=== PATIENT | male | born 1960 | race Caucasian/White ===

== ENCOUNTER → 2019-02-06 12:31 | Outpatient (CLI) | payer OTHER, SELFPAY ==
--- NOTE | 2019-02-06 13:11 | DI.CT.S_ITS ---
PROCEDURE: CT ABDOMEN PELVIS W CON INDICATIONS: Right upper quadrant pain TECHNIQUE: After the administration of oral and intravenous contrast, 5 mm thick sections acquired from the diaphragms to the symphysis. 5 mm thick coronal and sagittal reformats were performed. For radiation dose reduction, the following was used: automated exposure control, adjustment of mA and/or kV according to patient size. COMPARISON: [facility], CT, ABDOMEN/PELVIS WITH CONTRAST, 02/19/2015, 7:46. FINDINGS: Image quality: Excellent. ABDOMEN: Lung bases: Lung bases are clear. Heart size is normal. Solid organs: There is a calcified granuloma in liver. Liver is normal in size and enhancement. Gallbladder is normal. Biliary system is non-dilated. Pancreas enhances normally. Spleen is normal in size and enhancement. No adrenal nodules. Kidneys are normal in size and enhancement, without hydronephrosis. Peritoneum and bowel: Stomach, small bowel, and colon loops are normal in caliber and wall thickness. There are scattered colonic diverticula. There is mild thickening of sigmoid colon without associated inflammatory stranding. Appendix is normal. No free fluid or air. Nodes and vessels: No retroperitoneal or mesenteric adenopathy. Aorta and inferior vena cava are normal in caliber. Miscellaneous: No ventral hernias. PELVIS: Genitourinary: Bladder wall may be mildly thickened anteriorly. Miscellaneous: No inguinal adenopathy. Bilateral fat containing internal hernias are noted. Bones: No suspicious bony lesions. No vertebral body compression fractures. IMPRESSION: 1. No CT findings to explain right upper quadrant pain. 2. Colonic diverticulosis. There is mild thickening of sigmoid colon without associated inflammatory stranding. Differential diagnosis include artifact versus mild acute diverticulitis. 3. ? Mild bladder wall thickening, which may be secondary to artifact, cystitis or bladder outlet obstruction. 4. A calcified granuloma in the liver. Dictated by: Sallie Tran M.D. on 02/06/2019 at 16:02 Approved by: Sallie Tran M.D. on 02/06/2019 at 18:19
== END ==
PROVIDERS: PCP Internal Medicine; Visit Provider Internal Medicine
DX: R10.11 Right upper quadrant pain (principal); K57.90 Diverticulosis of intestine, part unspecified, without perforation or abscess without bleeding; K40.20 Bilateral inguinal hernia, without obstruction or gangrene, not specified as recurrent
CPT/HCPCS: 74177; Q9967

== ENCOUNTER 2019-08-29 10:24 | Day surgery (SDC) | payer OTHER, SELFPAY ==
[2019-08-29] VITALS (7 sets, daily range): BP systolic 110–137; BP diastolic 65–88; PULSE 71–99; RESP 15–20; TEMP 36.2–36.8; O2SAT 95–99; BMI 30.9
--- NOTE | 2019-08-29 | PATH_ITS ---
[facility] Accession Number: [id number] . 01 Material submitted: . PART A: colon - TRANSVERSE COLON POLYPS X2 PART B: colon - DESCENDING COLON POLYP . 02 Diagnosis: A. Transverse Colon, Polyps x2, Biopsies: Tubular adenoma in one of two fragments. Benign lymphoid aggregate in one fragment. . B. Descending Colon, Polyp, Biopsy: Tubular adenoma. MRV 08/30/2019 1337 Local . 02 Electronically signed: . Yola Butler MD, Pathologist NPI- [id number] . 01 Gross description: . Part A: TRANSVERSE COLON POLYPS X2: Received in formalin are 2 fragment(s) of miller, soft tissue measuring 0.2 x 0.2 x 0.2 cm to 0.6 x 0.5 x 0.3 cm submitted entirely in 1 cassette(s) Part B: DESCENDING COLON POLYP: Received in formalin is 1 fragment(s) of miller, soft tissue measuring 0.3 x 0.3 x 0.3 cm submitted entirely in 1 cassette(s) /[facility] 08/29/2019 2030 Local . 02 Pathologist provided ICD-10: D12.3, D12.4 . 02 CPT . 992542, [id number] Performed at: 01 [facility] [address], [place], [place] [id number] MD Pepe Qiu MD Phone: [phone] Performed at: 02 [facility] [address] [place], [place] [id number] MD Yola Butler MD Phone: [phone]
--- NOTE | 2019-08-29 07:59 | PM.HP.1 ---
History of Present Illness History of Present Illness Date Patient Seen: 08/29/19 Chief complaint: [id number] Narrative: 59-year-old male with a history of diverticulitis in January 2019 who is here for colon cancer screening. He had prior colonoscopy performed at age 43 with a polyp and in 2010 which was normal per his but records are not available for review. He currently denies any ongoing abdominal pain. Patient seen in our office on 08/21/2019. Please refer to that office note for further details. Meds Home Medications and Allergies Home Medications Medication Instructions Recorded Confirmed Type No Known Home Medications 08/29/19 08/29/19 History Allergies Allergy/AdvReac Type Severity Reaction Status Date / Time yellow fever vaccine live Allergy Mild MADE ME Verified 08/29/19 10:44 [YELLOW FEVER VACCINE LIVE] REALLY SICK Exam Narrative Exam Narrative: General: Patient is obese, not in apparent distress Cardiovascular: Regular rate and rhythm, no murmurs, rubs, or gallops; no evidence of edema; no palpable abdominal aortic aneurysm Gastrointestinal: Normoactive bowel sounds, soft, nontender, nondistended, no rebound tenderness, no hepatosplenomegaly, no evidence of hernia Assessment & Plan Assessment & Plan narrative: 59-year-old male here for colon cancer screening after having a bout of diverticulitis January 2019. Regarding the procedure(s), the risks and potential complications, benefits, and alternatives (including not doing the procedure) were discussed with the patient. The risks include but are not limited to bleeding, splenic injury, infection, perforation which may require surgical intervention, missed lesions, and adverse reactions to sedative medicines. After a question and answer period, the patient agreed to proceed with the procedure(s) and gives informed consent.
[2019-08-29] MEDS: SODIUM CHLORIDE 0.9% 1,000 ML 70 ML IV (10:44)
--- NOTE | 2019-08-29 11:23 | PM.OP.ENDO ---
Operative Date/Time/Diagnoses Date of procedure: 08/29/19 Procedure Notes Procedure in detail: Surgeon: Riki Will MD Procedure: Colonoscopy with polypectomy Preoperative diagnosis: CRC screening, history of diverticulitis January 2019 Postoperative diagnosis: Colon polyps x3 status post polypectomy, sigmoid diverticulosis, grade 2 internal hemorrhoids, external hemorrhoids Medications: Conscious sedation using 4 mg IV of Midazolam and 100 mcg IV of Fentanyl Preanesthesia Assessment An H and P was performed/updated and the Px?s ASA class is 2. The procedure was discussed in detail with the patient. The potential risks and complications including infection, bleeding, missed lesions, perforation, need for surgery in case of perforation, prolonged hospital stay, and were explained. A brief question and answer period was allotted and once all questions were answered, informed consent was obtained. The patient was brought back to the procedure room and placed on standard monitoring. The patient?s vital signs were monitored continuously throughout the entire procedure. Prior to starting, a timeout was performed to confirm the patient?s identity, allergies, medications, and procedure. Procedure in detail The patient was placed in left lateral decubitus position and once adequate sedation was obtained a JAMES was performed. The digital rectal examination revealed external hemorrhoids. The digital rectal examination did not reveal any palpable lesions. The tip of the colonoscope was placed in the anal canal and advanced without difficulty all the way to the cecum which was identified by the appendiceal orifice and the ileocecal valve. The terminal ileum was intubated to a distance of 5 cm from the ileocecal valve and the mucosa appeared normal. The colonoscope was then withdrawn back into the cecum. Careful examination of all mir of the colon was performed with irrigation of any residual stool. In the transverse colon, there was note of a 3 mm sessile polyp which was removed by means of cold Jumbo forceps. There was a 2nd polyp measuring 5 mm which was removed by means of cold snare. Resection and retrieval was complete with minimal bleeding In the descending colon, there was note of a 4 mm semi pedunculated polyp which was removed by means of cold snare. Resection retrieval was complete with minimal bleeding. There was note of multiple medium-size diverticula in the sigmoid colon Retroflexion was performed in the rectum which revealed scarring from prior internal hemorrhoid banding, grade 2 internal hemorrhoids. External hemorrhoids were visualized on scope withdrawal from the anal canal. The patient tolerated the procedure well and will be brought back to the recovery area to be discharged once criteria are met. The prep was judged to be good and adequate to identify polyps less than 5 mm. The withdrawal time was 10 minutes. The total physician intraservice time was 14 minutes. Complications There were no complications and estimated blood loss was minimal. Recommendations: High fiber diet Follow up pathology results Repeat colonoscopy in 3 or 5 years depending on pathology results Office follow up as needed An emergency contact number was given to the patient for any complications related to the procedure
[2019-08-29] MEDS: fentaNYL 250 MCG/5 ML INJ IV (11:37)
[2019-08-29] MEDS: MIDAZOLAM 5 MG/5 ML VIAL IV (11:38)
--- NOTE | 2019-08-29 12:08 | SUR.PHASEII ---
Tolerating po. Denies pain/nausea.
== END 2019-08-29 12:30 | disposition home or self-care (01) ==
PROVIDERS: Family Provider Internal Medicine; PCP Internal Medicine; Visit Provider Internal Medicine Gastroenterology
PROC: 0DJD8ZZ Inspection of Lower Intestinal Tract, Via Natural or Artificial Opening Endoscopic (ICD-10-PCS; CPT 45378; principal; 2019-08-29 11:30)
DX: Z12.11 Encounter for screening for malignant neoplasm of colon (principal); Z87.19 Personal history of other diseases of the digestive system; Z86.010 Personal history of colon polyps; K57.30 Diverticulosis of large intestine without perforation or abscess without bleeding; K64.1 Second degree hemorrhoids; K64.8 Other hemorrhoids; D12.3 Benign neoplasm of transverse colon; D12.4 Benign neoplasm of descending colon
CPT/HCPCS: 45385; 45380; J2250; J3010

== ENCOUNTER 2020-01-28 04:56 | Emergency (ER) | payer OTHER, SELFPAY ==
[2020-01-28 05:04] VITALS: BP 185/91; PULSE 122; RESP 21; TEMP 36.6; O2SAT 99; BMI 31.6
--- NOTE | 2020-01-28 05:07 | ED_ITS ---
HPI - Abdominal Pain General Chief Complaint: Abdominal Pain Stated Complaint: possible appendicitis Time Seen by Provider: 01/28/20 05:07 Source: patient and old records reviewed Mode of arrival: Ambulatory Limitations: no limitations History of Present Illness HPI narrative: This is a 59-year-old male comes to the emergency department with complaint of right lower quadrant pain. Patient states he had symptoms starting about 4 days ago very mildly and then Tuesday and been increasing. He states the pain is being more to and regularly. His bowel movements his last bowel movement was Tuesday. He denies a black or bloody stools. He denies any urinary frequency dysuria or urgency. He states he does get a sensation of some relief urinates. He also states that deep inspiratory breath makes his right lower quadrant her more. He denies any medical issues, he denies any surgeries other than colonscopy and states that he was told he had diverticulitis. For tobacco, no illicit. Denies allergies other than to yellow fever vaccine. Related Data Previous Rx's Medication Instructions Recorded hydrocodone-acetaminophen [Stonewall] 1 tab PO Q6H PRN #10 tab 01/28/20 Allergies Allergy/AdvReac Type Severity Reaction Status Date / Time yellow fever vaccine live Allergy Mild MADE ME Verified 08/29/19 10:44 [YELLOW FEVER VACCINE LIVE] REALLY SICK Review of Systems Review of Systems ROS Unobtainable: All systems reviewed & are unremarkable except as noted in HPI and below Patient History Medical History (Updated 01/28/20 @ 06:18 by Cassia Amaya DO) Abnormal colonoscopy (Acute) Social History household members: spouse Smoking Status: Never smoker Smoking Status: Never smoker alcohol intake frequency: 0-2 drinks per day Substance Use Type: does not use Exam Narrative Exam Narrative: GENERAL: Alert and oriented x three, tall, well-nourished male in [id number]-[id number] distress. HEENT: Head normocephalic, atraumatic, EOMI, pupils reactive, face symmetric, moist mucous membranes NECK: Supple, full range of motion CARDIOVASCULAR: Regular rate and rhythm without murmurs, rubs or gallops. RESPIRATORY: Breath sounds equal bilaterally, no wheezes rales or rhonchi. ABDOMEN: Soft, nontender to palpation. Normoactive bowel sounds all 4 quadrants. No guarding or rebound, rigidity, no mass : mild CVA tenderness BACK: No cervical, thoracic or lumbar vertebral point tenderness. Patient has normal range of motion. Patient's gait is normal. Muscle strength is 5/5 in lower extremities, normal gait. EXTREMITIES: Normal range of motion, no clubbing or edema. Neurovascularly intact NEUROLOGICAL: Cranial nerves II through XII grossly intact. Moving all extremities SKIN: Warm, dry, no petechiae, no rashes or lesions. Initial Vital Signs Initial Vital Signs: Vital Signs Temperature 97.8 F 01/28/20 05:04 Pulse Rate 122 H 01/28/20 05:04 Respiratory Rate 21 01/28/20 05:04 Blood Pressure 185/91 H 01/28/20 05:04 Pulse Oximetry 99 01/28/20 05:04 Course Orders Ordered: Discontinued Medications Sodium Chloride (Normal Saline 0.9%) 1,000 mls @ 1,000 mls/hr IV BOLUS ONE Stop: 01/28/20 06:13 Last Infusion: 01/28/20 06:39 Dose: 0 mls/hr Documented by: Infusion: 01/28/20 06:27 Dose: 1,000 mls/hr Documented by: Infusion: 01/28/20 05:44 Dose: 0 mls/hr Documented by: Admin: 01/28/20 05:20 Dose: 1,000 mls/hr Documented by: PATRICIA Ketorolac Tromethamine (Toradol) 30 mg IV NOW ONE Stop: 01/28/20 05:15 Last Admin: 01/28/20 05:21 Dose: 30 mg Documented by: PATRICIA Vital Signs Vital signs: Vital Signs - 8 hr 01/28/20 05:04 01/28/20 06:01 Temperature 97.8 F Pulse Rate 122 H 75 Respiratory Rate 21 18 Blood Pressure 185/91 H Blood Pressure [Left Arm] 141/79 H Pulse Oximetry 99 98 MDM - Abdominal Pain Lab Data Result diagrams: 01/28/20 05:11 01/28/20 05:11 Labs: Lab Results 01/28/20 01/28/20 01/28/20 Range/Units 05:11 05:11 05:20 WBC 8.3 (4.5-11.0) X10^3/uL RBC 5.18 (4.5-5.9) X10^6/uL Hgb 15.8 (13.5-17.5) g/dL Hct 47.2 (41-53) % MCV 91.1 (80-100) fL MCH 30.6 (26-34) PG MCHC 33.5 (30-36) % RDW 13.2 (11.6-14.8) % Plt Count 246 (150-400) X10^3/uL Neut % (Auto) 53.7 (50-75) % Lymph % (Auto) 33.1 (25-40) % [place] % (Auto) 8.8 (3-14) % Eos % (Auto) 3.1 (2-4) % Baso % (Auto) 1.3 (0-2) % Neut # (Auto) 4500 (1403-0117) /uL Lymph # (Auto) 2700 (9647-9005) /uL [place] # (Auto) 700 (0-900) /uL Eos # (Auto) 300 (0-450) /uL Baso # (Auto) 100 (0-100) /uL Sodium 137 (137-145) mmol/L Potassium 3.9 (3.4-5.1) mmol/L Chloride 106 (98-107) mmol/L Carbon Dioxide 25 (22-32) mmol/L BUN 11 (9-20) mg/dL Creatinine 0.88 (0.66-1.25) mg/dL Estimated GFR > 60.0 (>60) mL/min BUN/Creatinine Ratio 12.5 (6-22) Glucose 105 (80-110) mg/dL Calcium 9.3 (8.4-10.2) mg/dL Total Bilirubin 0.7 (0.2-1.3) mg/dL AST 21 (17-59) IU/L ALT 19 (<50) IU/L Alkaline Phosphatase 78 (38-126) U/L Total Protein 7.5 (6.3-8.2) g/dL Albumin 4.5 (3.5-5.0) g/dL Globulin 3.0 (1.7-4.1) g/dL Albumin/Globulin Ratio 1.5 (1.0-2.8) Lipase 131 (23-300) U/L Urine RBC None seen (0-5/HPF) Urine WBC 1-5/hpf (0-5/HPF) Urine Bacteria None seen (None) Urine Mucus 3+ H (Negative) Ur Culture Indicated? Cult not indicated Point of care testing: Urine Dip Bedside Urine Glucose Negative Bedside Urine Bilirubin - Negative Bedside Urine Ketone ++ 40 Urine Specific [place] 1.025 Bedside Urine Occult Blood +/- Bedside Urine pH 5.5 Bedside Urine Protein +/- 15 Bedside Urine Urobilinogen - Negative Bedside Urine Nitrite - Negative Bedside Urine Leukocytes - Negative Esterase MDM Narrative Medical decision making narrative: Patient is non-tender in RLQ but has had increasing pain. Labs show normal cbc, normal CMP and lipase, poc urine shows ketones and hematuria, microscopy is negative for rbc, 1-5wbc with no bacteria. CT shows calcified hepatic granuloma. Small umbilical hernia containing fat. Normal appearing appendix. Bilateral inguinal hernias containing fat. Multilevel spondylitic changes of the lumbar spine. Mild anterior compression deformity of the L1 vertebral body with approximately 10% loss of anterior vertebral body height. Patient was nontender with palpation. Had some mild right lower back tenderness. Suspect that patient's pain is more related to his back, he did have quite a bit of discomfort trying to get off the CT scan table. On recheck patient has been having some inguinal type but states also back pain and when questioned further states he has had issues in the past that feel similar and has taken Lortab but states this was many years ago intermittently. Patient I am unable to recreate his pain in the right inguinal area. We discussed he does have a small hernia on that side as well as the other that could be contributing to his pain but was back issues I suspect that majority of his pain is secondary to this. Patient had toradol and fluids. Patient is feeling better and states he feels like his pain is improved enough that he could fall asleep. Will give a short course of Stonewall for as needed pain control patient has follow-up with primary care if he is not improving. Discharge Plan Departure Patient Disposition: Home Clinical Impression: Abdominal pain, Back pain, Compression fracture Discharge Date/Time: 01/28/20 06:39 Instructions: DI for Abdominal Pain-Adult Activity Restrictions/Additional Instructions: Follow up with your physician if no improvement of symptoms. Your imaging does show a small umbilical hernia and two small bilateral inguinal hernias as well as a mild compression deformity of your L1 spine or compression fracture. And recommend ibuprofen up to 600 mg every 6 hours. If this is not adequate you may take narcotic pain medication as prescribed. Take medication as prescribed. This medication can make you sleepy do not drive, perform hazardous activities or make any major decisions while taking it. Prescription sent to [facility]. Return to ER for fevers greater than 100.4F, new or rapidly worsening back or abdominal pain, passing out, new numbness, weakness or inability to move extremity, loss of bowel or bladder control or other new or concerning symptoms Prescriptions: New hydrocodone-acetaminophen [Stonewall] 5-325 mg tablet 1 tab PO Q6H PRN (Reason: pain) Qty: 10 RF: 0 Referrals: Jhonny Fregoso MD [Primary Care Provider] -
--- NOTE | 2020-01-28 05:14 | DI.CT.S_ITS ---
PROCEDURE: CT ABDOMEN PELVIS W CON INDICATIONS: RLQ pain x 4 days, worsening, flank pain, stone v appy TECHNIQUE: After the administration of intravenous contrast, 5 mm thick sections acquired from the diaphragm to the symphysis. 5 mm coronal and sagittal reformats were acquired. For radiation dose reduction, the following was used: automated exposure control, adjustment of mA and/or kV according to patient size. COMPARISON: [facility], CT, CT ABDOMEN PELVIS W CON, 02/06/2019, 13:25. FINDINGS: Image quality: Excellent. ABDOMEN: Lung bases: Lung bases are clear. Heart size is normal. Solid organs: Liver is normal in size and enhancement. Calcified granuloma in the right lobe. Gallbladder is nondistended. No calcified gallstones seen. Biliary system is non dilated. Pancreas enhances normally. Spleen is normal in size and enhancement. No adrenal nodules. Kidneys demonstrate normal size and enhancement, without hydronephrosis. Peritoneum and bowel: Bowel loops demonstrate normal wall thickness and caliber. Sigmoid colon diverticulosis. Minimal surrounding linear opacity is likely related to the vasculature and is unchanged compared to 02/06/2019. The appendix is normal in caliber measuring 4 mm, (2/60). No free fluid or air. Nodes and vessels: No retroperitoneal or mesenteric adenopathy by size criteria. Aorta and inferior vena cava are normal in size. Mild calcified atherosclerotic plaque in the abdominal aorta. Miscellaneous: No ventral hernias. PELVIS: Genitourinary: Bladder is mostly decompressed limiting evaluation. No bladder calculus. Prostate is enlarged with calcifications. Miscellaneous: Bilateral fat containing inguinal hernias, unchanged. No suspicious adenopathy. Bones: No suspicious bony lesions. No vertebral body compression fractures. IMPRESSION: 1. No acute inflammatory process demonstrated. No free fluid. Appendix is normal in caliber. 2. No kidney stones. No hydronephrosis. 3. Gallbladder is unremarkable. 4. Sigmoid colon diverticulosis. No diverticulitis. 5. Fat containing inguinal hernias. This report is concordant with the overnight preliminary interpretation. Dictated by: Sawyer Wilkins M.D. on 01/28/2020 at 8:18 Approved by: Sawyer Wilkins M.D. on 01/28/2020 at 8:27
[2020-01-28] MEDS: SODIUM CHLORIDE 0.9% 1,000 ML 1000 ML IV (05:20)
[2020-01-28] MEDS: KETOROLAC 60 MG/2 ML VIAL 30 MG IV (05:21)
[2020-01-28 05:25] LABS: Add Manual Diff / Slide Review NO; Basophils Absolute Auto 100 /uL (0-100); Basophils Percent Auto 1.3 % (0-2); Eosinophils Absolute Auto 300 /uL (0-450); Eosinophils Percent Auto 3.1 % (2-4); Hematocrit 47.2 % (41-53); Hemoglobin 15.8 g/dL (13.5-17.5); Lymphocytes Absolute Auto 2700 /uL (1100-4500); Lymphocytes Percent Auto 33.1 % (25-40); Mean Corpuscular HGB Conc 33.5 % (30-36); Mean Corpuscular Hemoglobin 30.6 PG (26-34); Mean Corpuscular Volume 91.1 fL (80-100); Monocytes Absolute Auto 700 /uL (0-900); Monocytes Percent Auto 8.8 % (3-14); Neutrophils Absolute Auto 4500 /uL (1500-7000); Neutrophils Percent Auto 53.7 % (50-75); Platelet Count 246 X10^3/uL (150-400); Red Blood Cell Count 5.18 X10^6/uL (4.5-5.9); Red Cell Distribution Width 13.2 % (11.6-14.8); White Blood Cell Count 8.3 X10^3/uL (4.5-11.0)
[2020-01-28 05:30] LABS: Alanine Aminotransferase 19 IU/L (<50); Albumin 4.5 g/dL (3.5-5.0); Albumin Globulin Ratio 1.5 (1.0-2.8); Alkaline Phosphatase 78 U/L (38-126); Aspartate Aminotransferase 21 IU/L (17-59); BUN Creatinine Ratio 12.5 (6-22); Bilirubin Total 0.7 mg/dL (0.2-1.3); Blood Urea Nitrogen 11 mg/dL (9-20); Calcium 9.3 mg/dL (8.4-10.2); Carbon Dioxide 25 mmol/L (22-32); Chloride 106 mmol/L (98-107); Estimated Glomerular Filt Rate > 60.0 mL/min (>60); Glucose 105 mg/dL (80-110); HEMOLYSIS 15 (0-50); Lipase 131 U/L (23-300); Potassium 3.9 mmol/L (3.4-5.1); Sodium 137 mmol/L (137-145); Total Protein 7.5 g/dL (6.3-8.2)
[2020-01-28 05:32] LABS: Bacteria Urine None Seen; RBC Urine None Seen (0-5/HPF)
[2020-01-28 05:48] LABS: Culture Indicated Urine Cult Not Indicated; Mucus Urine 3+ (Negative); WBC Urine 1-5/HPF (0-5/HPF)
[2020-01-28 06:01] VITALS: BP 141/79; PULSE 75; RESP 18; O2SAT 98
[2020-01-28 06:38] VITALS: BP 140/81; PULSE 81; RESP 16; TEMP 36.8; O2SAT 95
== END 2020-01-28 06:39 | disposition home or self-care (01) ==
PROVIDERS: Emergency Provider Emergency Medicine; Family Provider Internal Medicine; PCP Internal Medicine
DX: R10.31 Right lower quadrant pain (principal); M54.9 Dorsalgia, unspecified; M48.50XA Collapsed vertebra, not elsewhere classified, site unspecified, initial encounter for fracture
CPT/HCPCS: 36415; 74177; 80053; 81003; 81015; 83690; 85025; 96361; 96374; 99284; J1885; Q9967

== ENCOUNTER → 2021-09-22 10:23 | Outpatient (CLI) | payer OTHER, SELFPAY ==
--- NOTE | 2021-09-22 | DI.RAD.S_ITS ---
PROCEDURE: XR HIP W PEL IF DONE RT 2V INDICATIONS: RIGHT HIP PAIN TECHNIQUE: AP pelvis with lateral view(s) of the right hip(s). COMPARISON: None. FINDINGS: Bones: No fractures or dislocations. Pelvic ring appears intact. No suspicious bony lesions. Mild joint space narrowing and periarticular osteophyte formation at the bilateral hip joints. Soft tissues: The visualized bowel gas pattern is normal. No suspicious soft tissue calcifications. IMPRESSION: Mild bilateral hip osteoarthritis. No acute fracture. No osseous lesion. If symptoms and/or clinical suspicion for pathology persist, further assessment with repeat, or advanced imaging (e.g., CT, MRI, or bone scan) may be helpful for further assessment. Dictated by: Romain Charles M.D. on 09/22/2021 at 11:55 Approved by: Romain Charles M.D. on 09/22/2021 at 12:11
== END ==
PROVIDERS: Family Provider Internal Medicine; PCP Internal Medicine; Referring Provider Internal Medicine; Visit Provider Internal Medicine
DX: M16.0 Bilateral primary osteoarthritis of hip (principal); M25.551 Pain in right hip
CPT/HCPCS: 73502

== ENCOUNTER → 2022-09-29 06:54 | Outpatient (CLI) | payer OTHER, SELFPAY ==
[2022-09-29 10:06] LABS: Alanine Aminotransferase 29 IU/L (<50); Albumin 4.4 g/dL (3.5-5.0); Albumin Globulin Ratio 1.6 (1.0-2.8); Alkaline Phosphatase 83 U/L (38-126); Aspartate Aminotransferase 25 IU/L (17-59); Bilirubin Total 0.6 mg/dL (0.2-1.3); Blood Urea Nitrogen 14 mg/dL (9-20); Calcium 8.9 mg/dL (8.4-10.2); Carbon Dioxide 29 mmol/L (22-32); Chloride 100 mmol/L (98-107); Cholesterol 201 mg/dL (140-199); Estimated Glomerular Filt Rate > 60 mL/min (>60); Globulin 2.8 g/dL (1.7-4.1); Glucose 101 mg/dL (80-110); HDL Cholesterol 43 mg/dL (40-60); HEMOLYSIS < 15 (0-50); LDL Cholesterol Calculated 137 mg/dL (<100); Potassium 3.7 mmol/L (3.4-5.1); Sodium 140 mmol/L (137-145); Total Protein 7.2 g/dL (6.3-8.2); Triglycerides 105 mg/dL (35-150)
[2022-09-29 10:35] LABS: Prostate Specific Antigen Scrn 1.52 ng/mL (0.1-4.0)
== END ==
PROVIDERS: PCP Internal Medicine; Referring Provider Internal Medicine; Visit Provider Internal Medicine
DX: E78.2 Mixed hyperlipidemia (principal); Z12.5 Encounter for screening for malignant neoplasm of prostate
CPT/HCPCS: 36415; 80053; 80061; G0103

== ENCOUNTER 2025-03-06 13:04 | Day surgery (SDC) | payer MEDICARE, OTHER, SELFPAY ==
--- NOTE | 2025-03-06 | DI.CT.S_ITS ---
PROCEDURE: CT ABDOMEN PELVIS WO CON INDICATIONS: Post colonoscopy belly pain TECHNIQUE: After the administration of oral contrast, 5 mm thick sections acquired from the diaphragms to the symphysis. 5 mm coronal and sagittal reformats were performed. For radiation dose reduction, the following was used: automated exposure control, adjustment of mA and/or kV according to patient size. COMPARISON: None. FINDINGS: Image quality: Diagnostic. Lower Chest: No significant findings. ABDOMEN: Liver: No contour-deforming mass. Gallbladder: No radiopaque gallstones or wall thickening. Biliary ducts: No biliary dilation. Pancreas: No ductal dilation. Spleen: Size is within normal limits. Adrenal Glands: No adrenal nodules. Kidneys and Ureters: No hydronephrosis. No contour-deforming mass. Stomach and Bowel: Focally narrowed distal sigmoid of uncertain etiology in the location of multiple diverticuli. Colon and small bowel otherwise unremarkable. Air present in the colon from colonoscopy. Peritoneum: No abnormal intraperitoneal fluid. No free air. Ventral Wall: No significant hernia. Abdominal Nodes: No retroperitoneal or mesenteric adenopathy by size criteria. Vessels: Aorta and inferior vena cava are normal in size. PELVIS: Pelvic Organs: Unremarkable. Bladder: Unremarkable. Pelvic Nodes: No enlarged lymph nodes. Miscellaneous: Bilateral fat containing inguinal hernias are seen. Bones: No aggressive osseous abnormality. IMPRESSION: 1. No evidence of bowel perforation post colonoscopy. 2. Focally narrowed area of sigmoid colon. 3. Diverticulosis. Comment: Please refer to the cabin worker report for colonoscopy related findings. Dictated by: Genaro Roque M.D. on 03/06/2025 at 16:46 Approved by: Genaro Roque M.D. on 03/06/2025 at 16:50
--- NOTE | 2025-03-06 13:39 | PM.HP.IH.1 ---
History of Present Illness History of Present Illness Date Patient Seen: 03/06/25 Chief complaint: [facility] Medical History (Updated 07/12/22 @ 13:56 by Jose Gonzales MD) Hyperlipemia, mixed Hyperlipidemia H/O adenomatous polyp of colon Hearing loss Chronic back pain Tinnitus (~1992) Diverticular disease (~2018) Skin cancer (~2016) Surgical History (Updated 04/26/22 @ 21:23 by Debora Peterson) Anesthesia History of hemorrhoidectomy (~1994) Family History (Updated 04/26/22 @ 21:27 by Debora Peterson) Mother Kidney disease History of heart disease Grandmother Alzheimer's disease Social History household members: spouse Meds Home Medications and Allergies Home Medications Medication Instructions Recorded Confirmed Type triamcinolone acetonide 0.1 % 1 applic topical QID #80 grams 07/12/22 11/08/22 Rx topical cream sodium sul 1.479 gram-potas ch See Rx Instructions PO PER PKG DIR 02/07/25 Rx 0.188 gram-magnes sul 0.225 gram #24 tabs tablet (Sutab) Allergies Allergy/AdvReac Type Severity Reaction Status Date / Time yellow fever vaccine live Allergy Mild MADE ME Verified 11/08/22 13:30 [YELLOW FEVER VACCINE LIVE] REALLY SICK Exam Narrative Exam Narrative: Oropharynx free of lesions Chest clear to auscultation percussion Cardiac exam reveals no S3 or murmur Assessment & Plan Assessment & Plan narrative: Need for colorectal cancer screening. Risks, benefits, alternatives have been explained. Time-Based Coding :: [TOTAL MINUTES] spent with patient and on the chart (including review of chart, obtaining history, exam, reviewing outside data, placing orders, documenting exam and treatment plan, and counseling patient) on [DATE]. PROFEE Assistant Project Engineer Document charge(s): No
--- NOTE | 2025-03-06 13:40 | PM.OP.COLON ---
Operative Date/Time/Diagnoses Date of procedure: 03/06/25 Time of procedure: 15:07 Pre-op diagnosis: See indication and findings Post-op diagnosis: same Procedure & Clinicians Study performed: Colonoscopy Same procedure as scheduled: Yes Indications: Colorectal cancer screening Surgeon: Sun Quiñones Procedure Notes Procedure in detail: After informed consent was obtained the patient was placed in left lateral decubitus position. The video colonoscope was introduced the rectum slowly advanced cecum. Preparation was good. On slow withdrawal mucosa was carefully examined. The scope was removed. The patient tolerated procedure well. Blood loss none Complications none Sedation mac Findings 1. Normal colonoscopy to cecum Patient should have follow-up colonoscopy in 5-10 years
[2025-03-06 13:55] VITALS: BP 154/102; PULSE 87; RESP 16; TEMP 36.5; O2SAT 96
[2025-03-06] MEDS: LACTATED RINGERS 1,000 ML 42 ML IV (14:00)
[2025-03-06 15:36] VITALS: BP 190/101; PULSE 86; RESP 20; TEMP 36.6; O2SAT 96
--- NOTE | 2025-03-06 15:38 | SUR.PHASEI ---
1525 pt c/o increasing lower abd pain, abd mildly distended tender to light palpation md notified pt assessed by MD no new orders
--- NOTE | 2025-03-06 16:39 | SUR.PHASEII ---
Stat CT scan without contrast ordered by Dr. Quiñones. Order placed and taken to CT. RN present during scan. Patient returned to the surgery department with RN. Report given to Carolyn. Patient's spouse at bedside.
[2025-03-06 17:15] VITALS: BP 148/94; PULSE 88; RESP 16; TEMP 36.5; O2SAT 97
== END 2025-03-06 17:15 | disposition home or self-care (01) ==
PROVIDERS: PCP Physician Assistant; Referring Provider Internal Medicine Gastroenterology; Visit Provider Internal Medicine Gastroenterology
PROC: 0DJD8ZZ Inspection of Lower Intestinal Tract, Via Natural or Artificial Opening Endoscopic (ICD-10-PCS; CPT 45378; principal; 2025-03-06 14:30)
DX: Z12.11 Encounter for screening for malignant neoplasm of colon (principal)
CPT/HCPCS: G0121; 74176; J2704